=== PATIENT | male | born 1955 | race Caucasian/White ===

== ENCOUNTER 2019-04-02 17:34 | Emergency (ER) | payer MEDICARE ==
[2019-04-02] MEDS ORDERED: Ondansetron 4 MG Tab.DIS PO ONE (17:35)
--- NOTE | 2019-04-02 17:46 | EDM.PDOC ---
ED HPI GENERAL MEDICAL PROBLEM - General Chief Complaint: General Stated Complaint: DOESN'T FEEL RIGHT, DIABETIC Time Seen by Provider: 04/02/19 17:39 Source of Information: Reports: Patient, Old Records, RN, RN Notes Reviewed History Limitations: Reports: No Limitations - History of Present Illness INITIAL COMMENTS - FREE TEXT/NARRATIVE: Pt presents to ER from home by POV with c/o onset of "not feeling right" at 1100HRS this morning. Shortly after he felt poorly, he checked his blood sugar and it was 51 so he ate something sweet, and drank orange juice. His sugar came up, then he ate 2 sausages. After eating the sausages he got hot, then broke out in a cold sweat and describes being diaphoretic. Pt reports nausea with emesis x1. He states that he has a headache, has some mild shortness of breath, and feels unsteady on his feet. He denies chest pain, fever, cough, abdominal pain, diarrhea, urinary symptoms, edema, syncope, or near-syncope. He is concerned because he is diabetic, and has Hx of cardiac stents, so he thought he should come to the ER to be checked out. The pt's history is quit lengthy due to wandering subjects, pt seems to get side tracked in conversation very easy. Onset: Today Duration: Constant Location: Reports: Abdomen, Generalized Quality: Reports: Other (Denies pain) Severity: Moderate Improves with: Reports: None Worsens with: Reports: None Associated Symptoms: Reports: No Other Symptoms - Related Data Allergies Allergy/AdvReac Type Severity Reaction Status Date / Time No Known Allergies Allergy Verified 04/02/19 17:50 Home Meds: Home Meds Acetaminophen 500 mg PO QID PRN 04/02/19 [History] Aspirin [Halfprin] 81 mg PO DAILY 04/02/19 [History] Atenolol 100 mg PO DAILY 04/02/19 [History] Clopidogrel [Plavix] 75 mg PO DAILY 04/02/19 [History] Cyclobenzaprine [Flexeril] 5 mg PO TID PRN 04/02/19 [History] Ferrous Sulfate 325 mg PO DAILY 04/02/19 [History] Insulin Glarg,Human.Rec.Analog [Lantus] 35 unit SQ BID 04/02/19 [History] Insulin Lispro [Humalog] 25 unit SQ TIDMEALS 04/02/19 [History] Isosorbide Mononitrate [Imdur] 30 mg PO DAILY 04/02/19 [History] Montelukast [Singulair] 10 mg PO BEDTIME 04/02/19 [History] Niacin 2,000 mg PO BEDTIME 04/02/19 [History] Nitroglycerin [Nitrostat] 0.4 mg SL TID 04/02/19 [History] Pantoprazole Sodium [Protonix] 20 mg PO DAILY 04/02/19 [History] Simvastatin 20 mg PO BEDTIME 04/02/19 [History] Zolpidem Tartrate [Ambien] 5 mg PO BEDTIME PRN 04/02/19 [History] diphenhydrAMINE [Benadryl] 25 mg PO QID PRN 04/02/19 [History] Past Medical History Cardiovascular History: Reports: CAD, High Cholesterol, Hypertension, Stents Gastrointestinal History: Reports: GERD Genitourinary History: Reports: Prostate Disorder Endocrine/Metabolic History: Reports: Diabetes, Type II Hematologic History: Reports: Anemia, Iron Deficiency Social & Family History - Family History Family Medical History: Noncontributory - Living Situation & Occupation Living situation: Reports: Single, Alone ED ROS GENERAL - Review of Systems Review Of Systems: ROS reveals no pertinent complaints other than HPI. ED EXAM, GENERAL - Physical Exam Exam: See Below Exam Limited By: No Limitations General Appearance: Alert, WD/WN, No Apparent Distress, Anxious Eye Exam: Bilateral Eye: Normal Inspection Ears: Normal External Exam, Hearing Grossly Normal Nose: Normal Inspection, Normal Mucosa, No Blood Throat/Mouth: Normal Inspection, Normal Lips, Normal Oropharynx, Normal Voice, No Airway Compromise Head: Atraumatic, Normocephalic Neck: Normal Inspection, Supple, Non-Tender, Full Range of Motion Respiratory/Chest: No Respiratory Distress, Lungs Clear, Normal Breath Sounds, No Accessory Muscle Use, Chest Non-Tender Cardiovascular: Regular Rate, Rhythm GI/Abdominal: Normal Bowel Sounds, Soft, Non-Tender, No Distention, No Abnormal Bruit, No Mass. No: Guarding, Rigid, Rebound (Male) Exam: Deferred Rectal (Males) Exam: Deferred Back Exam: Normal Inspection, Full Range of Motion. No: CVA Tenderness (L), CVA Tenderness (R) Extremities: Normal Inspection, Normal Range of Motion, Non-Tender, No Pedal Edema, Normal Capillary Refill Neurological: Alert, Oriented, CN II-XII Intact, Normal Cognition, Normal Gait, No Motor/Sensory Deficits Psychiatric: Anxious Skin Exam: Warm, Dry, Intact, Normal Color, No Rash EKG INTERPRETATION EKG Date: 04/02/19 Time: 17:56 Rhythm: Other (SR) Rate (Beats/Min): 87 [place]: Normal P-Wave: Present QRS: Normal ST-T: Normal QT: Normal Comparison: NA - No Prior EKG EKG Interpretation Comments: No acute ischemic findings. Course - Vital Signs Last Recorded V/S: Last Vital Signs Temp 37.2 C 04/02/19 17:39 Pulse 90 04/02/19 17:39 Resp 23 H 04/02/19 17:39 BP 126/61 04/02/19 17:39 Pulse Ox 97 04/02/19 17:39 - Orders/Labs/Meds Orders: Active Orders 24 hr Category Date Time Status Blood Glucose Check, Bedside [] ONETIME Care 04/02/19 17:53 Active EKG 12 Lead [EKG Documentation Completion] [] STAT Care 04/02/19 17:52 Active Peripheral IV Care [RC] . DIRECTED Care 04/02/19 17:53 Active Chest 1V Frontal [CR] Stat Exams 04/02/19 17:52 Ordered UA W/MICROSCOPIC [URIN] Stat Lab 04/02/19 18:24 Results Sodium Chloride 0.9% [Saline Flush] Med 04/02/19 17:53 Active 10 ml FLUSH ASDIRECTED PRN Peripheral IV Insertion Adult [OM.PC] Stat Oth 04/02/19 17:52 Ordered Medication Orders Sodium Chloride (Saline Flush) 10 ml FLUSH ASDIRECTED PRN PRN Reason: Keep Vein Open Last Admin: 04/02/19 18:05 Dose: 10 ml Labs: Laboratory Tests 04/02/19 04/02/19 04/02/19 Range/Units 18:03 18:03 18:24 WBC 6.3 (5.0-10.0) 10^3/uL RBC 3.68 L (4.6-6.2) 10^6/uL Hgb 11.8 L (14.0-18.0) g/dL Hct 33.7 L (40.0-54.0) % MCV 91.6 (80-100) fL MCH 32.1 (27.0-34.0) pg MCHC 35.0 (33.0-35.0) g/dL Plt Count 108 L (150-450) 10^3/uL Neut % (Auto) 96.7 H (42.2-75.2) % Lymph % (Auto) 1.9 L (20.5-50.1) % [place] % (Auto) 0.9 L (2-8) % Eos % (Auto) 0.3 L (1.0-3.0) % Baso % (Auto) 0.2 (0.0-1.0) % Sodium 132 L (135-145) mmol/L Potassium 3.4 L (3.6-5.0) mmol/L Chloride 98 L (101-111) mmol/L Carbon Dioxide 25.0 (21.0-31.0) mmol/L Anion Gap 12.4 BUN 15 (7-18) mg/dL Creatinine 1.0 (0.6-1.3) mg/dL Est Cr Clr Drug Dosing 73.15 mL/min Estimated GFR (MDRD) > 60 BUN/Creatinine Ratio 15.00 Glucose 227 H (74-105) mg/dL Calcium 7.8 L (8.4-10.2) mg/dl Total Bilirubin 0.9 (0.2-1.0) mg/dL AST 106 H (10-42) IU/L ALT 40 (10-60) IU/L Alkaline Phosphatase 90 (42-121) IU/L Troponin I < 0.02 (0.00-0.02) ng/ml Total Protein 5.3 L (6.7-8.2) g/dl Albumin 3.3 (3.2-5.5) g/dl Globulin 2.0 Albumin/Globulin Ratio 1.65 Amylase 46 (28-100) U/L Lipase 22 (22-51) U/L Urine Color Yellow (YELLOW) Urine Appearance Clear (CLEAR) Urine pH 6.0 (5.0-9.0) Ur Specific [place] 1.015 (1.005-1.030) Urine Protein 30 H (NEGATIVE) Urine Glucose (UA) 100 H (NEGATIVE) Urine Ketones Trace H (NEGATIVE) Urine Occult Blood Negative (NEGATIVE) Urine Nitrite Negative (NEGATIVE) Urine Bilirubin Negative (NEGATIVE) Urine Urobilinogen 1.0 (0.2-1.0) mg/dL Ur Leukocyte Esterase Negative (NEGATIVE) Ketones Negative Meds: Medications Generic Name Dose Route Start Last Admin Trade Name Freq PRN Reason Stop Dose Admin Sodium Chloride 10 ml 04/02/19 17:53 04/02/19 18:05 Saline Flush FLUSH 10 ml ASDIRECTED PRN Administration Keep Vein Open Discontinued Medications Generic Name Dose Route Start Last Admin Trade Name Freq PRN Reason Stop Dose Admin Sodium Chloride 1,000 mls @ 999 mls/hr 04/02/19 17:53 04/02/19 18:07 Normal Saline IV 04/02/19 18:53 999 mls/hr .BOLUS ONE Administration Ondansetron HCl 4 mg 04/02/19 17:53 04/02/19 18:10 Zofran IV 04/02/19 17:54 4 mg ONETIME ONE Administration - Radiology Interpretation Free Text/Narrative:: [facility] Final Radiology Report Call: [phone] assistance Online chat: [email or web address] Name: DIANA WISDOM Age: 63Years M Date: 04/02/2019 SSN: -- : [id number] Study: XR CHEST 1 VIEW FRONTAL Requesting Physician: SARAH KAHN Images: 1 Addl Studies: Provided Clinical History: Contrast: Contrast Medium: Contrast Amount: Contrast Method: CONFIDENTIALITY STATEMENT This report is intended only for use by the referring physician, and only in accordance with law. If you received this in error, call [phone]. Page 1 of 1 EXAM: XR Chest, 1 View EXAM DATE/TIME: 04/02/2019 6:18 PM CLINICAL HISTORY: 63 years old, male; Signs and symptoms; Other: Chest pain TECHNIQUE: Imaging protocol: XR of the chest, 1 view. COMPARISON: No relevant prior studies available. FINDINGS: Lungs: Calcified granuloma left lung apex. No consolidation. Pleural space: Unremarkable. No pleural effusion. No pneumothorax. Heart/Mediastinum: Unremarkable. No cardiomegaly. Bones/joints: Unremarkable. IMPRESSION: No acute findings. Thank you for allowing us to participate in the care of your patient. Dictated and Authenticated by: Junior Lu MD 04/02/2019 6:31 PM Central Time ([place] & [place]) Departure - Departure Time of Disposition: 18:57 Disposition: Home, Self-Care 01 Condition: Good Clinical Impression: Nausea and vomiting Qualifiers: Vomiting type: unspecified Vomiting Intractability: non-intractable Qualified Code(s): R11.2 - Nausea with vomiting, unspecified - Discharge Information *PRESCRIPTION DRUG MONITORING PROGRAM REVIEWED*: No *COPY OF PRESCRIPTION DRUG MONITORING REPORT IN PATIENT NADEEN: No Instructions: Nausea and Vomiting, Adult, [id number] Forms: ED Department Discharge Additional Instructions: Rx: Zofran 4mg Clear liquids and bland diet until your stomach feels better and the nausea has completely resolved. Follow up in clinic with Dr. Che this week if not completely improved. Return to ER if worse at any time or if any new symptoms develop. - My Orders Last 24 Hours: My Active Orders 04/02/19 17:52 EKG 12 Lead [EKG Documentation Completion] [RC] STAT Chest 1V Frontal [CR] Stat Peripheral IV Insertion Adult [OM.PC] Stat 04/02/19 17:53 Blood Glucose Check, Bedside [RC] ONETIME Peripheral IV Care [RC] . DIRECTED Sodium Chloride 0.9% [Saline Flush] 10 ml FLUSH ASDIRECTED PRN 04/02/19 18:24 UA W/MICROSCOPIC [URIN] Stat - Assessment/Plan Last 24 Hours: My Active Orders 04/02/19 17:52 EKG 12 Lead [EKG Documentation Completion] [RC] STAT Chest 1V Frontal [CR] Stat Peripheral IV Insertion Adult [OM.PC] Stat 04/02/19 17:53 Blood Glucose Check, Bedside [RC] ONETIME Peripheral IV Care [RC] . DIRECTED Sodium Chloride 0.9% [Saline Flush] 10 ml FLUSH ASDIRECTED PRN 04/02/19 18:24 UA W/MICROSCOPIC [URIN] Stat
[2019-04-02] MEDS ORDERED: Sodium Chloride 0.9% 10 ML Syringe FLUSH PRN (17:53)
[2019-04-02] MEDS ORDERED: Sodium Chloride 0.9% 1,000 ML IV ONE (17:53)
[2019-04-02] MEDS ORDERED: Ondansetron 4 MG/2 ML SDV IV ONE (17:53)
[2019-04-02 18:38] LABS: ANION GAP 12.4; CHLORIDE,CL 98 mmol/L (101-111); SODIUM,NA 132 mmol/L (135-145)
[2019-04-02] MEDS ORDERED: Ondansetron 4 MG Tab.DIS ONE (19:18)
== END 2019-04-02 19:30 | disposition home or self-care (01) ==
LOC: DL.ED 17:34
DX: R11.2 Nausea with vomiting, unspecified (principal); I25.10 Atherosclerotic heart disease of native coronary artery without angina pectoris; E78.00 Pure hypercholesterolemia, unspecified; I10 Essential (primary) hypertension; E11.9 Type 2 diabetes mellitus without complications; K21.9 Gastro-esophageal reflux disease without esophagitis; D50.9 Iron deficiency anemia, unspecified; Z79.82 Long term (current) use of aspirin; Z95.5 Presence of coronary angioplasty implant and graft; Z79.899 Other long term (current) drug therapy; Z79.01 Long term (current) use of anticoagulants; Z79.4 Long term (current) use of insulin
CPT/HCPCS: 36415; 71045; 80053; 81001; 82009; 82150; 82962; 83690; 84484; 85025; 93005; 96365; 96375; 99284; J2405; J7030; A9270-GY

== ENCOUNTER 2020-01-09 16:16 | Emergency (ER) | payer MEDICARE, OTHER, SELFPAY ==
[2020-01-09] MEDS ORDERED: 50% Dextrose in Water 50 ML Syringe IVPUSH ONE (16:20)
--- NOTE | 2020-01-09 17:04 | EDM.PDOC ---
ED HPI GENERAL MEDICAL PROBLEM - General Chief Complaint: Diabetic Complaint Stated Complaint: AMB Time Seen by Provider: 01/09/20 16:30 Source of Information: Reports: Patient History Limitations: Reports: No Limitations - History of Present Illness INITIAL COMMENTS - FREE TEXT/NARRATIVE: This 64 yo male patient was brought to the ED by [facility] after intercepting with a private vehicle. The patient reports he has had numerous episodes of hypoglycemia. The patient reports normally when his blood pressure goes low, he has some sugar and feels better, but normally he does get the chills. The patient reports chills upon arrival in the ED. 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: Other (see below) (D10 by EMS) - Related Data Allergies Allergy/AdvReac Type Severity Reaction Status Date / Time No Known Allergies Allergy Verified 01/09/20 16:36 Home Meds: Home Meds Acetaminophen 500 mg PO QID PRN 04/02/19 [History] Aspirin [Halfprin] 81 mg PO DAILY 04/02/19 [History] Clopidogrel [Plavix] 75 mg PO DAILY 04/02/19 [History] Cyclobenzaprine [Flexeril] 5 mg PO TID PRN 04/02/19 [History] Ferrous Sulfate 325 mg PO DAILY 04/02/19 [History] Insulin Glarg,Human.Rec.Analog [Lantus] 35 unit SQ BID 04/02/19 [History] Insulin Lispro [Humalog] 25 unit SQ TIDMEALS 04/02/19 [History] Isosorbide Mononitrate [Imdur] 30 mg PO DAILY 04/02/19 [History] Montelukast [Singulair] 10 mg PO BEDTIME 04/02/19 [History] Niacin 2,000 mg PO BEDTIME 04/02/19 [History] Nitroglycerin [Nitrostat] 0.4 mg SL TID 04/02/19 [History] Pantoprazole Sodium [Protonix] 20 mg PO DAILY 04/02/19 [History] Simvastatin 20 mg PO BEDTIME 04/02/19 [History] Zolpidem Tartrate [Ambien] 5 mg PO BEDTIME PRN 04/02/19 [History] atenoloL [Atenolol] 100 mg PO DAILY 04/02/19 [History] diphenhydrAMINE [Benadryl] 25 mg PO QID PRN 04/02/19 [History] Past Medical History HEENT History: Reports: Impaired Vision Cardiovascular History: Reports: CAD, High Cholesterol, Hypertension, Stents Respiratory History: Reports: COPD Gastrointestinal History: Reports: GERD Genitourinary History: Reports: Prostate Disorder Neurological History: Reports: None Psychiatric History: Reports: None Endocrine/Metabolic History: Reports: Diabetes, Type II Hematologic History: Reports: Anemia, Iron Deficiency Oncologic (Cancer) History: Reports: None Dermatologic History: Reports: None - Infectious Disease History Infectious Disease History: Reports: C-Difficile - Past Surgical History Head Surgeries/Procedures: Reports: None Social & Family History - Family History Family Medical History: Noncontributory - Tobacco Use Smoking Status *Q: Never Smoker - Caffeine Use Caffeine Use: Reports: Soda - Recreational Drug Use Recreational Drug Use: No - Living Situation & Occupation Living situation: Reports: Single, Alone ED ROS GENERAL - Review of Systems Review Of Systems: Comprehensive ROS is negative, except as noted in HPI. ED EXAM GENERAL NO PERIP PULSE - Physical Exam Exam: See Below Exam Limited By: No Limitations General Appearance: Alert, WD/WN, Moderate Distress Eye Exam: Bilateral Eye: EOMI, Normal Inspection, PERRL Ears: Normal External Exam, Normal Canal, Hearing Grossly Normal, Normal TMs Nose: Normal Inspection, Normal Mucosa, No Blood Throat/Mouth: Normal Inspection, Normal Lips, Normal Teeth, Normal Gums, Normal Oropharynx, Normal Voice, No Airway Compromise Head: Atraumatic, Normocephalic Neck: Normal Inspection, Supple, Non-Tender, Full Range of Motion Respiratory/Chest: No Respiratory Distress, Lungs Clear, Normal Breath Sounds, No Accessory Muscle Use, Chest Non-Tender Cardiovascular: Normal Peripheral Pulses, Regular Rate, Rhythm, No Edema, No Gallop, No JVD, No Murmur, No Rub GI/Abdominal: Normal Bowel Sounds, Soft, Non-Tender, No Organomegaly, No Distention, No Abnormal Bruit, No Mass (Male) Exam: Deferred Rectal (Males) Exam: Deferred Back Exam: Normal Inspection, Full Range of Motion, NT Extremities: Normal Inspection, Normal Range of Motion, Non-Tender, Normal Capillary Refill, No Pedal Edema Neurological: Alert, Oriented, CN II-XII Intact, Normal Cognition, Normal Gait, Normal Reflexes, No Motor/Sensory Deficits Psychiatric: Normal Affect, Normal Mood Skin Exam: Warm, Dry, Intact, Normal Color, No Rash Lymphatic: No Adenopathy Course - Vital Signs Last Recorded V/S: Last Vital Signs Temp 36.1 C 01/09/20 16:23 Pulse 75 01/09/20 16:23 Resp 22 H 01/09/20 16:23 BP Pulse Ox 100 01/09/20 16:23 - Orders/Labs/Meds Labs: Laboratory Tests 01/09/20 Range/Units 16:22 POC Glucose 189 H (70-105) mg/dl Meds: Medications Discontinued Medications Generic Name Dose Route Start Last Admin Trade Name Earnest PRN Reason Stop Dose Admin Dextrose/Water 50 ml 01/09/20 16:20 Dextrose 50% In Water IVPUSH 01/09/20 16:21 ONETIME ONE Departure - Departure Time of Disposition: 17:22 Disposition: Home, Self-Care 01 Condition: Fair Clinical Impression: Hypoglycemia - Discharge Information *PRESCRIPTION DRUG MONITORING PROGRAM REVIEWED*: Not Applicable *COPY OF PRESCRIPTION DRUG MONITORING REPORT IN PATIENT NADEEN: Not Applicable Instructions: Hypoglycemia Forms: ED Department Discharge Care Plan Goals: The patient was advised of the examination and lab results during the visit. The patient was encouraged to continue to monitor his blood sugar on a regular basis. The patient reported he was feeling better by the time he arrived in the ED. The patient reports he will discuss his current episode with his primary care provider. If the patient has any additional symptoms or concerns, the patient should either return to the emergency department or visit his primary care facility. Sepsis Event Note - Evaluation Sepsis Screening Result: No Definite Risk - Focused Exam Vital Signs: Vital Signs Temp Pulse Resp Pulse Ox 01/09/20 16:23 36.1 C 75 22 H 100 Date Exam was Performed: 01/09/20 Time Exam was Performed: :22
== END 2020-01-09 17:30 | disposition home or self-care (01) ==
LOC: DL.ED 16:16
DX: E11.649 Type 2 diabetes mellitus with hypoglycemia without coma (principal); I25.10 Atherosclerotic heart disease of native coronary artery without angina pectoris; E78.00 Pure hypercholesterolemia, unspecified; I10 Essential (primary) hypertension; J44.9 Chronic obstructive pulmonary disease, unspecified; K21.9 Gastro-esophageal reflux disease without esophagitis; D50.9 Iron deficiency anemia, unspecified; Z95.5 Presence of coronary angioplasty implant and graft; Z79.899 Other long term (current) drug therapy; Z79.82 Long term (current) use of aspirin; Z79.02 Long term (current) use of antithrombotics/antiplatelets; Z79.4 Long term (current) use of insulin
CPT/HCPCS: 82962; 99284; 99285-25

== ENCOUNTER 2020-03-20 17:18 | Emergency (ER) | payer MEDICARE ==
--- NOTE | 2020-03-20 17:18 | EDM.PDOC ---
ED HPI GENERAL MEDICAL PROBLEM - General Chief Complaint: Diabetic Complaint Stated Complaint: UNKNOWN Time Seen by Provider: 03/20/20 17:05 Source of Information: Reports: Patient, EMS History Limitations: Reports: No Limitations - History of Present Illness INITIAL COMMENTS - FREE TEXT/NARRATIVE: This 64 yo male patient was brought to the ED by his son after being found in the [employer] parking lot unresponsive. EMS reported they responded to the patient' s vehicle due to unresponsiveness. Upon arrival, the patient's blood sugar level was 30. The patient was given IV D10 which increased his blood sugar level as well as level of consciousness. The patient refused transport to the ED by ambulance. The patient was given a ride to the ED by his son. Upon arrival in the ED, the patient reports he had a "diabetic episode". The patient' s main concern is that he has the inability to use his right hand and wrist. The patient is able to move the arm to the elbow, but has difficulties with any manipulation of the wrist or hand. The patient reports this is new for him. EMS reports they found the patient in the car leaning on his right arm. Apparently, the family had not been able to locate the patient for 3-4 hours prior to the patient being found in the [employer] parking lot. Onset: Today, Unknown/Unsure Location: Reports: Upper Extremity, Right, Generalized Quality: Reports: Other Severity: Moderate Improves with: Reports: None Worsens with: Reports: None Context: Reports: Other Associated Symptoms: Reports: Other - Related Data Allergies Allergy/AdvReac Type Severity Reaction Status Date / Time No Known Allergies Allergy Verified 01/09/20 16:36 Home Meds: Home Meds Acetaminophen 500 mg PO QID PRN 04/02/19 [History] Aspirin [Halfprin] 81 mg PO DAILY 04/02/19 [History] Clopidogrel [Plavix] 75 mg PO DAILY 04/02/19 [History] Cyclobenzaprine [Flexeril] 5 mg PO TID PRN 04/02/19 [History] Ferrous Sulfate 325 mg PO DAILY 04/02/19 [History] Insulin Glarg,Human.Rec.Analog [Lantus] 35 unit SQ BID 04/02/19 [History] Insulin Lispro [Humalog] 25 unit SQ TIDMEALS 04/02/19 [History] Isosorbide Mononitrate [Imdur] 30 mg PO DAILY 04/02/19 [History] Montelukast [Singulair] 10 mg PO BEDTIME 04/02/19 [History] Niacin 2,000 mg PO BEDTIME 04/02/19 [History] Nitroglycerin [Nitrostat] 0.4 mg SL TID 04/02/19 [History] Pantoprazole Sodium [Protonix] 20 mg PO DAILY 04/02/19 [History] Simvastatin 20 mg PO BEDTIME 04/02/19 [History] Zolpidem Tartrate [Ambien] 5 mg PO BEDTIME PRN 04/02/19 [History] atenoloL [Atenolol] 100 mg PO DAILY 04/02/19 [History] diphenhydrAMINE [Benadryl] 25 mg PO QID PRN 04/02/19 [History] Past Medical History HEENT History: Reports: Impaired Vision Cardiovascular History: Reports: CAD, High Cholesterol, Hypertension, Stents Respiratory History: Reports: COPD Gastrointestinal History: Reports: GERD Genitourinary History: Reports: Prostate Disorder Neurological History: Reports: None Psychiatric History: Reports: None Endocrine/Metabolic History: Reports: Diabetes, Type II Hematologic History: Reports: Anemia, Iron Deficiency Oncologic (Cancer) History: Reports: None Dermatologic History: Reports: None - Infectious Disease History Infectious Disease History: Reports: C-Difficile - Past Surgical History Head Surgeries/Procedures: Reports: None Social & Family History - Family History Family Medical History: Noncontributory - Caffeine Use Caffeine Use: Reports: Soda - Living Situation & Occupation Living situation: Reports: Single, Alone ED ROS GENERAL - Review of Systems Review Of Systems: Comprehensive ROS is negative, except as noted in HPI. ED EXAM GENERAL NO PERIP PULSE - Physical Exam Exam: See Below Exam Limited By: No Limitations General Appearance: Alert, WD/WN, Moderate Distress Eye Exam: Bilateral Eye: EOMI, Normal Inspection, PERRL Ears: Normal External Exam, Normal Canal, Hearing Grossly Normal, Normal TMs Nose: Normal Inspection, Normal Mucosa, No Blood Throat/Mouth: Normal Inspection, Normal Lips, Normal Teeth, Normal Gums, Normal Oropharynx, Normal Voice, No Airway Compromise Head: Atraumatic, Normocephalic Neck: Normal Inspection, Supple, Non-Tender, Full Range of Motion Respiratory/Chest: No Respiratory Distress, Lungs Clear, Normal Breath Sounds, No Accessory Muscle Use, Chest Non-Tender Cardiovascular: Normal Peripheral Pulses, Regular Rate, Rhythm, No Edema, No Gallop, No JVD, No Murmur, No Rub GI/Abdominal: Normal Bowel Sounds, Soft, Non-Tender, No Organomegaly, No Distention, No Abnormal Bruit, No Mass (Male) Exam: Deferred Rectal (Males) Exam: Deferred Back Exam: Normal Inspection, Full Range of Motion, NT Extremities: Normal Inspection, Non-Tender, No Pedal Edema, Normal Capillary Refill, Limited Range of Motion (to the patient's right arm (paralysis of the right wrist and right hand)) Neurological: Alert, Oriented, CN II-XII Intact, Normal Cognition, Normal Gait, Normal Reflexes, No Motor/Sensory Deficits Psychiatric: Normal Affect, Normal Mood Skin Exam: Warm, Dry, Intact, Normal Color, No Rash Lymphatic: No Adenopathy Course - Vital Signs Last Recorded V/S: Last Vital Signs Temp 35.8 C L 03/20/20 16:43 Pulse 79 03/20/20 16:43 Resp 26 H 03/20/20 16:43 BP 201/82 H 03/20/20 16:43 Pulse Ox 99 03/20/20 16:43 - Orders/Labs/Meds Orders: Active Orders 24 hr Category Date Time Status EKG Documentation Completion [RC] STAT Care 03/20/20 17:03 Active Head wo Cont [CT] Urgent Exams 03/20/20 17:11 Ordered Labs: Laboratory Tests 03/20/20 03/20/20 03/20/20 Range/Units 16:48 17:14 17:14 WBC 9.0 (5.0-10.0) 10^3/uL RBC 3.79 L (4.6-6.2) 10^6/uL Hgb 11.4 L (14.0-18.0) g/dL Hct 35.1 L (40.0-54.0) % MCV 92.6 (80-100) fL MCH 30.1 (27.0-34.0) pg MCHC 32.5 L (33.0-35.0) g/dL Plt Count 173 (150-450) 10^3/uL Neut % (Auto) 88.6 H (42.2-75.2) % Lymph % (Auto) 5.7 L (20.5-50.1) % [place] % (Auto) 5.0 (2-8) % Eos % (Auto) 0.6 L (1.0-3.0) % Baso % (Auto) 0.1 (0.0-1.0) % Sodium 139 (136-145) mmol/L Potassium 4.1 (3.5-5.1) mmol/L Chloride 102 (98-107) mmol/L Carbon Dioxide 29 (21-32) mmol/L Anion Gap 12.1 (7-13) mEq/L BUN 15 (7-18) mg/dL Creatinine 1.01 (0.70-1.30) mg/dL Est Cr Clr Drug Dosing 73.89 mL/min Estimated GFR (MDRD) > 60 BUN/Creatinine Ratio 14.9 (No establ ref range) Glucose 145 H (74-99) mg/dL POC Glucose 173 H (70-105) mg/dl Calcium 8.6 (8.5-10.1) mg/dL Total Bilirubin 0.4 (0.2-1.0) mg/dL AST 23 (15-37) U/L ALT 23 (16-63) U/L Alkaline Phosphatase 187 H (46-116) U/L Troponin I < 0.017 (0.000-0.056) ng/mL Total Protein 6.6 (6.4-8.2) g/dL Albumin 3.4 (3.4-5.0) g/dL Globulin 3.2 Albumin/Globulin Ratio 1.1 - Re-Assessments/Exams Free Text/Narrative Re-Assessment/Exam: 03/20/20 18:37 Follow-up evaluation of the patient demonstrated reduced redness of the right distal arm and increased movement of the wrist and and fingers. Departure - Departure Time of Disposition: 18:34 Disposition: Home, Self-Care 01 Condition: Fair Clinical Impression: Neuropathy of right upper extremity, Hypoglycemia - Discharge Information Instructions: Preventing Hypoglycemia, Peripheral Neuropathy, Hypoglycemia, [id number] Forms: ED Department Discharge Care Plan Goals: The patient was advised of the examination, lab, EKG and CT results during the visit. The patient was placed in a sling for support. The patient was encouraged to continue to monitor his right arm for any worsening of symptoms. If the patient has any additional symptoms or concerns, the patient should either return to the emergency department or visit his primary care facility. Sepsis Event Note - Evaluation Sepsis Screening Result: No Definite Risk - Focused Exam Vital Signs: Vital Signs Temp Pulse Resp BP Pulse Ox 03/20/20 16:43 35.8 C L 79 26 H 201/82 H 99 Date Exam was Performed: 03/20/20 Time Exam was Performed: 18:37 - My Orders Last 24 Hours: My Active Orders 03/20/20 17:03 EKG Documentation Completion [RC] STAT 03/20/20 17:11 Head wo Cont [CT] Urgent - Assessment/Plan Last 24 Hours: My Active Orders 03/20/20 17:03 EKG Documentation Completion [RC] STAT 03/20/20 17:11 Head wo Cont [CT] Urgent
[2020-03-20 17:43] LABS: ANION GAP 12.1 mEq/L (7-13); CHLORIDE,CL 102 mmol/L (98-107); SODIUM,NA 139 mmol/L (136-145)
== END 2020-03-20 18:55 | disposition home or self-care (01) ==
LOC: DL.ED 17:18
DX: G62.9 Polyneuropathy, unspecified (principal); E11.42 Type 2 diabetes mellitus with diabetic polyneuropathy; I25.10 Atherosclerotic heart disease of native coronary artery without angina pectoris; E78.00 Pure hypercholesterolemia, unspecified; I10 Essential (primary) hypertension; J44.9 Chronic obstructive pulmonary disease, unspecified; E11.649 Type 2 diabetes mellitus with hypoglycemia without coma; K21.9 Gastro-esophageal reflux disease without esophagitis; Z95.5 Presence of coronary angioplasty implant and graft; Z79.82 Long term (current) use of aspirin; Z79.4 Long term (current) use of insulin; Z79.02 Long term (current) use of antithrombotics/antiplatelets
CPT/HCPCS: 36415; 70450; 80053; 82962; 84484; 85025; 93005; 99285-25

== ENCOUNTER 2023-12-06 11:43 | Inpatient (IN) | payer MEDICARE, BC ==
[2023-12-06] MEDS ORDERED: Acetaminophen/oxyCODONE 325-5 MG Tab PO PRN (12:39)
[2023-12-06] MEDS ORDERED: HYDROmorphone 0.5 MG/0.5 ML Syringe IVPUSH PRN (12:39)
[2023-12-06] MEDS ORDERED: Magnesium Hydroxide 400 MG/5 ML Susp 30 ML Cup PO PRN (12:39)
[2023-12-06] MEDS ORDERED: Acetaminophen 325 MG Tab PO PRN (12:39)
[2023-12-06] MEDS ORDERED: Albuterol/Ipratropium 3.0-0.5 MG/3 ML Neb Soln NEB PRN (12:39)
[2023-12-06] MEDS ORDERED: Polyethylene Glycol 3350 Powder 17 GM Packet PO PRN (12:39)
[2023-12-06] MEDS ORDERED: Sennosides/Docusate Sodium 50-8.6 MG Tab PO PRN (12:39)
[2023-12-06] MEDS ORDERED: Ondansetron 4 MG/2 ML SDV IVPUSH PRN (12:39)
[2023-12-06] MEDS ORDERED: Sodium Chloride 0.9% 10 ML Syringe FLUSH PRN (12:39)
[2023-12-06] MEDS ORDERED: Piperacillin/Tazobactam 4.5 GM in Sodium Chloride 0.9% 100 ML IV ONE (13:05)
[2023-12-06 13:40] LABS: BASOPHILS PERCENT AUTO 0.1 % (0.0-1.0); EOSINOPHILS PERCENT AUTO 1.2 % (1.0-3.0); HEMATOCRIT 31.5 % (40.0-54.0); HEMOGLOBIN 10.6 g/dL (14.0-18.0); LYMPHOCYTES PERCENT AUTO 8.9 % (20.5-50.1); MEAN CORPUSCULAR HEMOGLOBIN 31.4 pg (27.0-34.0); MEAN CORPUSCULAR HGB CONC 33.7 g/dL (33.0-35.0); MEAN CORPUSCULAR VOLUME 93.2 fL (80-100); MONOCYTES PERCENT AUTO 5.3 % (2-8); NEUTROPHILS PERCENT AUTO 84.5 % (42.2-75.2); PLATELET COUNT,PLT 133 10^3/uL (150-450); RED BLOOD CELL COUNT 3.38 10^6/uL (4.6-6.2); WHITE BLOOD CELL COUNT,WBC 9.3 10^3/uL (5.0-10.0)
[2023-12-06] MEDS ORDERED: Glucagon,Human Recombinant 1 MG Vial IM PRN ×2 (13:50→15:39)
[2023-12-06] MEDS ORDERED: 50% Dextrose in Water 50 ML Syringe IVPUSH PRN ×2 (13:50→15:39)
[2023-12-06] MEDS ORDERED: Clindamycin in 0.9 % Sod Chlor 900 MG in Premix Bag 1 BAG IV SCH ×2 (14:00)
[2023-12-06 14:04] LABS: ALBUMIN 2.6 g/dL (3.4-5.0); ANION GAP 11.7 mEq/L (7-13); BILIRUBIN TOTAL 0.4 mg/dL (0.2-1.0); BUN/CREATININE RATIO 16.1 (No establ ref range); C-REACTIVE PROTEIN 11.49 ng/dL (<=0.50); CREATININE 1.37 mg/dL (0.70-1.30); EST CRCL DRUG DOSING (CG) 51.61 mL/min; MAGNESIUM 2.2 mg/dL (1.8-2.4); POTASSIUM,K 4.7 mmol/L (3.5-5.1)
[2023-12-06 14:05] LABS: A/G RATIO 0.76
[2023-12-06] MEDS ORDERED: Iopamidol 612 MG/ML 100 ML Bottle IVPUSH ONE (14:10)
[2023-12-06] MEDS ORDERED: Acetaminophen 500 MG Tab PO PRN (15:39)
[2023-12-06] MEDS: Sodium Chloride 0.9% 1,000 ML IV SCH (16:18)
[2023-12-06] MEDS ORDERED: Insulin Lispro 100 Units/ML 3 ML Vial SUBCUT SCH (17:00)
[2023-12-06] MEDS: Insulin Lispro 100 Units/ML 3 ML Vial SUBCUT SCH (17:51)
[2023-12-06] MEDS: Ferrous Sulfate 325 MG Tab PO SCH (17:54)
[2023-12-06] MEDS: Piperacillin/Tazobactam 4.5 GM in Sodium Chloride 0.9% 100 ML IV SCH (17:55)
[2023-12-06] MEDS ORDERED: Insulin Glarg,Human.Rec.Analog 100 Unit/ML 10 ML Vial SUBCUT SCH (21:00)
[2023-12-06] MEDS: Montelukast 10 MG Tab PO SCH (21:26)
[2023-12-06] MEDS: Simvastatin 10 MG Tab PO SCH (21:26)
[2023-12-06] MEDS: Niacin 500 MG Tab.ER PO SCH (21:26)
[2023-12-06] MEDS: Saccharomyces Boulardii (Probiotic) 250 MG Cap PO SCH (21:26)
[2023-12-06] MEDS: Sodium Chloride 0.9% 10 ML Syringe FLUSH SCH (21:27)
[2023-12-07] MEDS: Piperacillin/Tazobactam 4.5 GM in Sodium Chloride 0.9% 100 ML IV SCH ×4 (00:01→18:07)
[2023-12-07] MEDS: SOD CHLOR 0.9% IV SCH ×3 (06:11→21:57)
[2023-12-07] MEDS: CLINDAMYCIN IV SCH ×3 (06:11→21:57)
[2023-12-07 06:30] LABS: BASOPHILS PERCENT AUTO 0.1 % (0.0-1.0); EOSINOPHILS PERCENT AUTO 1.3 % (1.0-3.0); HEMATOCRIT 30.7 % (40.0-54.0); HEMOGLOBIN 10.4 g/dL (14.0-18.0); LYMPHOCYTES PERCENT AUTO 13.4 % (20.5-50.1); MEAN CORPUSCULAR HEMOGLOBIN 31.7 pg (27.0-34.0); MEAN CORPUSCULAR HGB CONC 33.9 g/dL (33.0-35.0); MEAN CORPUSCULAR VOLUME 93.6 fL (80-100); NEUTROPHILS PERCENT AUTO 80.2 % (42.2-75.2); PLATELET COUNT,PLT 120 10^3/uL (150-450); RED BLOOD CELL COUNT 3.28 10^6/uL (4.6-6.2); WHITE BLOOD CELL COUNT,WBC 7.8 10^3/uL (5.0-10.0)
[2023-12-07 06:58] LABS: A/G RATIO 0.67; ALBUMIN 2.2 g/dL (3.4-5.0); ANION GAP 11.9 mEq/L (7-13); BILIRUBIN TOTAL 0.4 mg/dL (0.2-1.0); BUN/CREATININE RATIO 12.1 (No establ ref range); C-REACTIVE PROTEIN 6.91 ng/dL (<=0.50); CALCIUM 7.7 mg/dL (8.5-10.1); CREATININE 1.07 mg/dL (0.70-1.30); EST CRCL DRUG DOSING (CG) 66.07 mL/min; MAGNESIUM 2.1 mg/dL (1.8-2.4); POTASSIUM,K 4.9 mmol/L (3.5-5.1); PROTEIN TOTAL,TP 5.5 g/dL (6.4-8.2)
[2023-12-07] MEDS ORDERED: 50% Dextrose in Water 50 ML Syringe IVPUSH PRN (07:12)
[2023-12-07] MEDS ORDERED: Glucagon,Human Recombinant 1 MG Vial IM PRN (07:12)
[2023-12-07] MEDS: Ferrous Sulfate 325 MG Tab PO SCH ×2 (07:53→18:06)
[2023-12-07] MEDS: Insulin Lispro 100 Units/ML 3 ML Vial SUBCUT SCH ×3 (08:02→17:59)
[2023-12-07] MEDS: Insulin Glarg,Human.Rec.Analog 100 Unit/ML 10 ML Vial SUBCUT SCH ×2 (08:17→20:36)
[2023-12-07] MEDS: Isosorbide Mononitrate 60 MG Tab.ER PO SCH (08:19)
[2023-12-07] MEDS: Saccharomyces Boulardii (Probiotic) 250 MG Cap PO SCH ×2 (08:19→20:35)
[2023-12-07] MEDS: Aspirin 81 MG Tab.EC PO SCH (08:19)
[2023-12-07] MEDS: Atenolol 50 MG Tab PO SCH (08:19)
[2023-12-07] MEDS: Pantoprazole 40 MG Tab.CR PO SCH (08:19)
[2023-12-07] MEDS: Clopidogrel 75 MG Tab PO SCH (08:19)
[2023-12-07] MEDS: Sodium Chloride 0.9% 10 ML Syringe FLUSH SCH ×2 (08:21→20:36)
[2023-12-07] MEDS: Sodium Chloride 0.9% 1,000 ML IV SCH (12:27)
[2023-12-07] MEDS: Niacin 500 MG Tab.ER PO SCH (20:35)
[2023-12-07] MEDS: Montelukast 10 MG Tab PO SCH (20:35)
[2023-12-07] MEDS: Simvastatin 10 MG Tab PO SCH (20:35)
[2023-12-07] MEDS: Zolpidem 5 MG Tab PO PRN ×2 (22:08)
[2023-12-08] MEDS: Piperacillin/Tazobactam 4.5 GM in Sodium Chloride 0.9% 100 ML IV SCH ×4 (00:05→17:57)
[2023-12-08] MEDS: SOD CHLOR 0.9% IV SCH ×3 (05:19→21:55)
[2023-12-08] MEDS: CLINDAMYCIN IV SCH ×3 (05:19→21:55)
[2023-12-08 06:26] LABS: BASOPHILS PERCENT AUTO 0.1 % (0.0-1.0); EOSINOPHILS PERCENT AUTO 1.7 % (1.0-3.0); HEMATOCRIT 28.8 % (40.0-54.0); HEMOGLOBIN 9.6 g/dL (14.0-18.0); LYMPHOCYTES PERCENT AUTO 14.7 % (20.5-50.1); MEAN CORPUSCULAR HEMOGLOBIN 31.6 pg (27.0-34.0); MEAN CORPUSCULAR HGB CONC 33.3 g/dL (33.0-35.0); MEAN CORPUSCULAR VOLUME 94.7 fL (80-100); MONOCYTES PERCENT AUTO 4.8 % (2-8); NEUTROPHILS PERCENT AUTO 78.7 % (42.2-75.2); PLATELET COUNT,PLT 133 10^3/uL (150-450); RED BLOOD CELL COUNT 3.04 10^6/uL (4.6-6.2); WHITE BLOOD CELL COUNT,WBC 8.1 10^3/uL (5.0-10.0)
[2023-12-08 06:38] LABS: ANION GAP 15.3 mEq/L (7-13); BILIRUBIN TOTAL 0.4 mg/dL (0.2-1.0); BUN/CREATININE RATIO 15.4 (No establ ref range); C-REACTIVE PROTEIN 4.11 ng/dL (<=0.50); CALCIUM 7.6 mg/dL (8.5-10.1); CREATININE 1.04 mg/dL (0.70-1.30); EST CRCL DRUG DOSING (CG) 67.98 mL/min; MAGNESIUM 1.9 mg/dL (1.8-2.4); POTASSIUM,K 5.3 mmol/L (3.5-5.1); PROTEIN TOTAL,TP 5.3 g/dL (6.4-8.2)
[2023-12-08 06:40] LABS: A/G RATIO 0.61
[2023-12-08] MEDS: Insulin Lispro 100 Units/ML 3 ML Vial SUBCUT SCH ×3 (08:01→17:25)
[2023-12-08] MEDS: Ferrous Sulfate 325 MG Tab PO SCH ×2 (08:01→17:58)
[2023-12-08] MEDS: Clopidogrel 75 MG Tab PO SCH (08:03)
[2023-12-08] MEDS: Saccharomyces Boulardii (Probiotic) 250 MG Cap PO SCH ×2 (08:03→21:54)
[2023-12-08] MEDS: Isosorbide Mononitrate 60 MG Tab.ER PO SCH (08:03)
[2023-12-08] MEDS: Pantoprazole 40 MG Tab.CR PO SCH (08:03)
[2023-12-08] MEDS: Atenolol 50 MG Tab PO SCH (08:04)
[2023-12-08] MEDS: Aspirin 81 MG Tab.EC PO SCH (08:04)
[2023-12-08] MEDS: Insulin Glarg,Human.Rec.Analog 100 Unit/ML 10 ML Vial SUBCUT SCH ×2 (08:06→20:09)
[2023-12-08] MEDS: Sodium Chloride 0.9% 10 ML Syringe FLUSH SCH ×2 (08:08→21:55)
[2023-12-08] MEDS ORDERED: Sodium Polystyrene Sulfonate 15 GM/60 ML Susp 60 ML Bot PO ONE (08:50)
[2023-12-08] MEDS ORDERED: Furosemide 20 MG/2 ML VIAL IVPUSH ONE ×2 (08:58→15:00)
[2023-12-08] MEDS ORDERED: Empagliflozin 25 MG Tab PO STA (09:03)
[2023-12-08] MEDS ORDERED: Metoclopramide 10 MG/2 ML SDV IVPUSH PRN (18:25)
[2023-12-08 20:10] LABS: A/G RATIO 0.71; ALBUMIN 2.4 g/dL (3.4-5.0); ANION GAP 14.7 mEq/L (7-13); BILIRUBIN TOTAL 0.3 mg/dL (0.2-1.0); CALCIUM 8.1 mg/dL (8.5-10.1); CREATININE 1.17 mg/dL (0.70-1.30); EST CRCL DRUG DOSING (CG) 60.43 mL/min; MAGNESIUM 1.8 mg/dL (1.8-2.4); POTASSIUM,K 4.7 mmol/L (3.5-5.1); PROTEIN TOTAL,TP 5.8 g/dL (6.4-8.2)
[2023-12-08 21:38] LABS: A/G RATIO 0.71; ALBUMIN 2.5 g/dL (3.4-5.0); ANION GAP 13.6 mEq/L (7-13); BILIRUBIN TOTAL 0.4 mg/dL (0.2-1.0); CALCIUM 8.1 mg/dL (8.5-10.1); CREATININE 1.17 mg/dL (0.70-1.30); EST CRCL DRUG DOSING (CG) 60.43 mL/min; MAGNESIUM 1.8 mg/dL (1.8-2.4); POTASSIUM,K 4.6 mmol/L (3.5-5.1)
[2023-12-08] MEDS: Montelukast 10 MG Tab PO SCH (21:54)
[2023-12-08] MEDS: Niacin 500 MG Tab.ER PO SCH (21:54)
[2023-12-08] MEDS: Simvastatin 10 MG Tab PO SCH (21:54)
[2023-12-08] MEDS: Zolpidem 5 MG Tab PO PRN (23:17)
[2023-12-09] MEDS: Piperacillin/Tazobactam 4.5 GM in Sodium Chloride 0.9% 100 ML IV SCH ×3 (01:21→17:25)
[2023-12-09] MEDS: SOD CHLOR 0.9% IV SCH ×3 (06:21→22:06)
[2023-12-09] MEDS: CLINDAMYCIN IV SCH ×3 (06:21→22:06)
[2023-12-09 06:38] LABS: BASOPHILS PERCENT AUTO 0.1 % (0.0-1.0); EOSINOPHILS PERCENT AUTO 0.9 % (1.0-3.0); HEMOGLOBIN 11.2 g/dL (14.0-18.0); LYMPHOCYTES PERCENT AUTO 10.2 % (20.5-50.1); MEAN CORPUSCULAR HEMOGLOBIN 31.9 pg (27.0-34.0); MEAN CORPUSCULAR HGB CONC 33.9 g/dL (33.0-35.0); MONOCYTES PERCENT AUTO 5.3 % (2-8); NEUTROPHILS PERCENT AUTO 83.5 % (42.2-75.2); PLATELET COUNT,PLT 165 10^3/uL (150-450); RED BLOOD CELL COUNT 3.51 10^6/uL (4.6-6.2); WHITE BLOOD CELL COUNT,WBC 9.9 10^3/uL (5.0-10.0)
[2023-12-09 07:10] LABS: A/G RATIO 0.74; ALBUMIN 2.5 g/dL (3.4-5.0); ANION GAP 19.3 mEq/L (7-13); BILIRUBIN TOTAL 0.6 mg/dL (0.2-1.0); BUN/CREATININE RATIO 11.5 (No establ ref range); C-REACTIVE PROTEIN 2.99 ng/dL (<=0.50); CALCIUM 8.3 mg/dL (8.5-10.1); CREATININE 1.22 mg/dL (0.70-1.30); EST CRCL DRUG DOSING (CG) 57.95 mL/min; MAGNESIUM 1.8 mg/dL (1.8-2.4); POTASSIUM,K 4.3 mmol/L (3.5-5.1); PROTEIN TOTAL,TP 5.9 g/dL (6.4-8.2)
[2023-12-09] MEDS: Aspirin 81 MG Tab.EC PO SCH (08:07)
[2023-12-09] MEDS: Saccharomyces Boulardii (Probiotic) 250 MG Cap PO SCH ×2 (08:07→20:41)
[2023-12-09] MEDS: Pantoprazole 40 MG Tab.CR PO SCH (08:08)
[2023-12-09] MEDS: Isosorbide Mononitrate 60 MG Tab.ER PO SCH (08:08)
[2023-12-09] MEDS: Ferrous Sulfate 325 MG Tab PO SCH ×2 (08:08→17:25)
[2023-12-09] MEDS: Empagliflozin 25 MG Tab PO SCH (08:08)
[2023-12-09] MEDS: Atenolol 50 MG Tab PO SCH (08:08)
[2023-12-09] MEDS: Insulin Glarg,Human.Rec.Analog 100 Unit/ML 10 ML Vial SUBCUT SCH ×2 (08:09→20:51)
[2023-12-09] MEDS: Insulin Lispro 100 Units/ML 3 ML Vial SUBCUT SCH ×3 (08:11→18:41)
[2023-12-09] MEDS: Clopidogrel 75 MG Tab PO SCH (08:12)
[2023-12-09] MEDS: Sodium Chloride 0.9% 10 ML Syringe FLUSH SCH ×2 (09:31→20:43)
[2023-12-09] MEDS: Bacitracin/Neomycin/Polymyxin B Oint 28.4 GM Tube TOP SCH ×2 (10:18→20:44)
[2023-12-09] MEDS: Simvastatin 10 MG Tab PO SCH (20:41)
[2023-12-09] MEDS: Montelukast 10 MG Tab PO SCH (20:42)
[2023-12-09] MEDS: Niacin 500 MG Tab.ER PO SCH (20:42)
[2023-12-09] MEDS ORDERED: Insulin Glarg,Human.Rec.Analog 100 Unit/ML 10 ML Vial SUBCUT SCH (21:00)
[2023-12-09] MEDS: Zolpidem 5 MG Tab PO PRN (23:12)
[2023-12-10] MEDS: Piperacillin/Tazobactam 4.5 GM in Sodium Chloride 0.9% 100 ML IV SCH ×3 (01:40→18:08)
[2023-12-10] MEDS: SOD CHLOR 0.9% IV SCH ×3 (05:46→22:14)
[2023-12-10] MEDS: CLINDAMYCIN IV SCH ×3 (05:46→22:14)
[2023-12-10 06:20] LABS: BASOPHILS PERCENT AUTO 0.2 % (0.0-1.0); EOSINOPHILS PERCENT AUTO 1.9 % (1.0-3.0); HEMATOCRIT 30.7 % (40.0-54.0); HEMOGLOBIN 9.8 g/dL (14.0-18.0); LYMPHOCYTES PERCENT AUTO 18.2 % (20.5-50.1); MEAN CORPUSCULAR HGB CONC 31.9 g/dL (33.0-35.0); MEAN CORPUSCULAR VOLUME 93.9 fL (80-100); MONOCYTES PERCENT AUTO 6.7 % (2-8); PLATELET COUNT,PLT 145 10^3/uL (150-450); RED BLOOD CELL COUNT 3.27 10^6/uL (4.6-6.2); WHITE BLOOD CELL COUNT,WBC 5.8 10^3/uL (5.0-10.0)
[2023-12-10 06:39] LABS: ALBUMIN 2.2 g/dL (3.4-5.0); ANION GAP 11.7 mEq/L (7-13); BILIRUBIN TOTAL 0.3 mg/dL (0.2-1.0); BUN/CREATININE RATIO 9.5 (No establ ref range); C-REACTIVE PROTEIN 2.04 ng/dL (<=0.50); CALCIUM 7.9 mg/dL (8.5-10.1); CREATININE 1.05 mg/dL (0.70-1.30); EST CRCL DRUG DOSING (CG) 67.33 mL/min; MAGNESIUM 1.9 mg/dL (1.8-2.4); POTASSIUM,K 4.7 mmol/L (3.5-5.1); PROTEIN TOTAL,TP 5.3 g/dL (6.4-8.2)
[2023-12-10 06:42] LABS: A/G RATIO 0.71
[2023-12-10] MEDS: Insulin Glarg,Human.Rec.Analog 100 Unit/ML 10 ML Vial SUBCUT SCH ×2 (10:22→21:12)
[2023-12-10] MEDS: Insulin Lispro 100 Units/ML 3 ML Vial SUBCUT SCH ×4 (10:23→18:07)
[2023-12-10] MEDS: Saccharomyces Boulardii (Probiotic) 250 MG Cap PO SCH ×2 (10:24→20:13)
[2023-12-10] MEDS: Atenolol 50 MG Tab PO SCH (10:24)
[2023-12-10] MEDS: Empagliflozin 25 MG Tab PO SCH (10:25)
[2023-12-10] MEDS: Aspirin 81 MG Tab.EC PO SCH (10:25)
[2023-12-10] MEDS: Ferrous Sulfate 325 MG Tab PO SCH ×2 (10:25→18:09)
[2023-12-10] MEDS: Pantoprazole 40 MG Tab.CR PO SCH (10:25)
[2023-12-10] MEDS: Isosorbide Mononitrate 60 MG Tab.ER PO SCH (10:25)
[2023-12-10] MEDS: Clopidogrel 75 MG Tab PO SCH (10:25)
[2023-12-10] MEDS: Sodium Chloride 0.9% 10 ML Syringe FLUSH SCH ×2 (10:30→20:14)
[2023-12-10] MEDS: Bacitracin/Neomycin/Polymyxin B Oint 28.4 GM Tube TOP SCH ×2 (10:30→20:14)
[2023-12-10] MEDS ORDERED: Sodium Chloride 0.9% 100 ML ONE (17:40)
[2023-12-10] MEDS: Simvastatin 10 MG Tab PO SCH (20:10)
[2023-12-10] MEDS: Niacin 500 MG Tab.ER PO SCH (20:11)
[2023-12-10] MEDS: Montelukast 10 MG Tab PO SCH (20:13)
[2023-12-10] MEDS: Zolpidem 5 MG Tab PO PRN (23:00)
[2023-12-11] MEDS: Piperacillin/Tazobactam 4.5 GM in Sodium Chloride 0.9% 100 ML IV SCH ×3 (01:49→17:19)
[2023-12-11] MEDS: CLINDAMYCIN IV SCH ×3 (05:55→22:24)
[2023-12-11] MEDS: SOD CHLOR 0.9% IV SCH ×3 (05:55→22:24)
[2023-12-11 06:31] LABS: BASOPHILS PERCENT AUTO 0.3 % (0.0-1.0); HEMATOCRIT 29.6 % (40.0-54.0); LYMPHOCYTES PERCENT AUTO 13.8 % (20.5-50.1); MEAN CORPUSCULAR HEMOGLOBIN 31.7 pg (27.0-34.0); MEAN CORPUSCULAR HGB CONC 33.8 g/dL (33.0-35.0); MONOCYTES PERCENT AUTO 5.9 % (2-8); PLATELET COUNT,PLT 160 10^3/uL (150-450); RED BLOOD CELL COUNT 3.15 10^6/uL (4.6-6.2); WHITE BLOOD CELL COUNT,WBC 7.6 10^3/uL (5.0-10.0)
[2023-12-11 06:57] LABS: ALBUMIN 2.2 g/dL (3.4-5.0); ANION GAP 16.2 mEq/L (7-13); BILIRUBIN TOTAL 0.4 mg/dL (0.2-1.0); BUN/CREATININE RATIO 11.5 (No establ ref range); C-REACTIVE PROTEIN 1.36 ng/dL (<=0.50); CALCIUM 8.1 mg/dL (8.5-10.1); CREATININE 1.04 mg/dL (0.70-1.30); EST CRCL DRUG DOSING (CG) 67.98 mL/min; POTASSIUM,K 4.2 mmol/L (3.5-5.1); PROTEIN TOTAL,TP 5.2 g/dL (6.4-8.2)
[2023-12-11 07:00] LABS: A/G RATIO 0.73
[2023-12-11] MEDS: Atenolol 50 MG Tab PO SCH (08:03)
[2023-12-11] MEDS: Saccharomyces Boulardii (Probiotic) 250 MG Cap PO SCH ×2 (08:03→20:41)
[2023-12-11] MEDS: Aspirin 81 MG Tab.EC PO SCH (08:04)
[2023-12-11] MEDS: Pantoprazole 40 MG Tab.CR PO SCH (08:04)
[2023-12-11] MEDS: Ferrous Sulfate 325 MG Tab PO SCH ×2 (08:04→17:19)
[2023-12-11] MEDS: Isosorbide Mononitrate 60 MG Tab.ER PO SCH (08:04)
[2023-12-11] MEDS: Insulin Glarg,Human.Rec.Analog 100 Unit/ML 10 ML Vial SUBCUT SCH ×2 (08:04→20:44)
[2023-12-11] MEDS: Clopidogrel 75 MG Tab PO SCH (08:04)
[2023-12-11] MEDS: Insulin Lispro 100 Units/ML 3 ML Vial SUBCUT SCH ×3 (08:05→17:20)
[2023-12-11] MEDS: Sodium Chloride 0.9% 10 ML Syringe FLUSH SCH ×2 (08:07→20:45)
[2023-12-11] MEDS: Bacitracin/Neomycin/Polymyxin B Oint 28.4 GM Tube TOP SCH ×2 (08:07→20:43)
[2023-12-11] MEDS: Niacin 500 MG Tab.ER PO SCH (20:41)
[2023-12-11] MEDS: Montelukast 10 MG Tab PO SCH (20:42)
[2023-12-11] MEDS: Simvastatin 10 MG Tab PO SCH (20:46)
[2023-12-11] MEDS: Zolpidem 5 MG Tab PO PRN (22:31)
[2023-12-12] MEDS: Piperacillin/Tazobactam 4.5 GM in Sodium Chloride 0.9% 100 ML IV SCH ×3 (02:02→17:00)
[2023-12-12] MEDS: SOD CHLOR 0.9% IV SCH ×3 (05:59→21:59)
[2023-12-12] MEDS: CLINDAMYCIN IV SCH ×3 (05:59→21:59)
[2023-12-12] MEDS: Insulin Lispro 100 Units/ML 3 ML Vial SUBCUT SCH ×3 (09:02→16:59)
[2023-12-12] MEDS: Insulin Glarg,Human.Rec.Analog 100 Unit/ML 10 ML Vial SUBCUT SCH ×2 (09:04→21:58)
[2023-12-12] MEDS: Atenolol 50 MG Tab PO SCH (09:08)
[2023-12-12] MEDS: Aspirin 81 MG Tab.EC PO SCH (09:08)
[2023-12-12] MEDS: Ferrous Sulfate 325 MG Tab PO SCH ×2 (09:08→17:00)
[2023-12-12] MEDS: Bacitracin/Neomycin/Polymyxin B Oint 28.4 GM Tube TOP SCH ×2 (09:08→21:59)
[2023-12-12] MEDS: Isosorbide Mononitrate 60 MG Tab.ER PO SCH (09:08)
[2023-12-12] MEDS: Saccharomyces Boulardii (Probiotic) 250 MG Cap PO SCH ×2 (09:08→21:58)
[2023-12-12] MEDS: Pantoprazole 40 MG Tab.CR PO SCH (09:08)
[2023-12-12] MEDS: Clopidogrel 75 MG Tab PO SCH (09:09)
[2023-12-12] MEDS: Sodium Chloride 0.9% 10 ML Syringe FLUSH SCH ×2 (09:11→21:59)
[2023-12-12] MEDS ORDERED: Hydrochlorothiazide/Triamterene 25-37.5 Tab PO ONE (11:13)
[2023-12-12] MEDS: Niacin 500 MG Tab.ER PO SCH (21:58)
[2023-12-12] MEDS: Montelukast 10 MG Tab PO SCH (21:58)
[2023-12-12] MEDS: Simvastatin 10 MG Tab PO SCH (21:58)
[2023-12-12] MEDS: Zolpidem 5 MG Tab PO PRN (22:04)
[2023-12-13] MEDS: Piperacillin/Tazobactam 4.5 GM in Sodium Chloride 0.9% 100 ML IV SCH ×2 (02:20→09:40)
[2023-12-13] MEDS: SOD CHLOR 0.9% IV SCH (05:22)
[2023-12-13] MEDS: CLINDAMYCIN IV SCH (05:22)
[2023-12-13 06:38] LABS: BASOPHILS PERCENT AUTO 0.4 % (0.0-1.0); EOSINOPHILS PERCENT AUTO 2.5 % (1.0-3.0); HEMATOCRIT 32.6 % (40.0-54.0); HEMOGLOBIN 10.9 g/dL (14.0-18.0); LYMPHOCYTES PERCENT AUTO 20.5 % (20.5-50.1); MEAN CORPUSCULAR HEMOGLOBIN 31.7 pg (27.0-34.0); MEAN CORPUSCULAR HGB CONC 33.4 g/dL (33.0-35.0); MEAN CORPUSCULAR VOLUME 94.8 fL (80-100); MONOCYTES PERCENT AUTO 7.9 % (2-8); NEUTROPHILS PERCENT AUTO 68.7 % (42.2-75.2); PLATELET COUNT,PLT 216 10^3/uL (150-450); RED BLOOD CELL COUNT 3.44 10^6/uL (4.6-6.2); WHITE BLOOD CELL COUNT,WBC 5.7 10^3/uL (5.0-10.0)
[2023-12-13 07:03] LABS: ALBUMIN 2.4 g/dL (3.4-5.0); ANION GAP 12.7 mEq/L (7-13); BILIRUBIN TOTAL 0.3 mg/dL (0.2-1.0); BUN/CREATININE RATIO 11.7 (No establ ref range); C-REACTIVE PROTEIN 0.65 ng/dL (<=0.50); CREATININE 1.03 mg/dL (0.70-1.30); EST CRCL DRUG DOSING (CG) 68.64 mL/min; POTASSIUM,K 4.7 mmol/L (3.5-5.1); PROTEIN TOTAL,TP 5.6 g/dL (6.4-8.2)
[2023-12-13 07:10] LABS: A/G RATIO 0.75
[2023-12-13] MEDS: Insulin Glarg,Human.Rec.Analog 100 Unit/ML 10 ML Vial SUBCUT SCH (08:15)
[2023-12-13] MEDS: Atenolol 50 MG Tab PO SCH (08:16)
[2023-12-13] MEDS: Pantoprazole 40 MG Tab.CR PO SCH (08:16)
[2023-12-13] MEDS: Clopidogrel 75 MG Tab PO SCH (08:16)
[2023-12-13] MEDS: Aspirin 81 MG Tab.EC PO SCH (08:16)
[2023-12-13] MEDS: Ferrous Sulfate 325 MG Tab PO SCH (08:17)
[2023-12-13] MEDS: Saccharomyces Boulardii (Probiotic) 250 MG Cap PO SCH (08:17)
[2023-12-13] MEDS: Insulin Lispro 100 Units/ML 3 ML Vial SUBCUT SCH ×2 (08:17→12:21)
[2023-12-13] MEDS: Isosorbide Mononitrate 60 MG Tab.ER PO SCH (08:17)
[2023-12-13] MEDS: Sodium Chloride 0.9% 10 ML Syringe FLUSH SCH (08:18)
[2023-12-13] MEDS: Bacitracin/Neomycin/Polymyxin B Oint 28.4 GM Tube TOP SCH (08:18)
[2023-12-13] MEDS ORDERED: Hydrochlorothiazide/Triamterene 25-37.5 Tab PO SCH (09:00)
== END 2023-12-13 14:30 | disposition home or self-care (01) | DRG 638 ==
LOC: DL.MS 11:43 → OBSVTOIN 12-08 15:22
PROVIDERS: ADMIT Internal Medicine; ATTEND Internal Medicine
DX: E11.622 Type 2 diabetes mellitus with other skin ulcer (principal); E87.1 Hypo-osmolality and hyponatremia; L03.116 Cellulitis of left lower limb; L97.129 Non-pressure chronic ulcer of left thigh with unspecified severity; N17.9 Acute kidney failure, unspecified; I10 Essential (primary) hypertension; I25.10 Atherosclerotic heart disease of native coronary artery without angina pectoris; J44.9 Chronic obstructive pulmonary disease, unspecified; E88.09 Other disorders of plasma-protein metabolism, not elsewhere classified; E66.9 Obesity, unspecified; E87.5 Hyperkalemia; R79.82 Elevated C-reactive protein (CRP); K21.9 Gastro-esophageal reflux disease without esophagitis; M54.9 Dorsalgia, unspecified; E78.00 Pure hypercholesterolemia, unspecified; G89.29 Other chronic pain; E11.65 Type 2 diabetes mellitus with hyperglycemia; D69.6 Thrombocytopenia, unspecified; E11.42 Type 2 diabetes mellitus with diabetic polyneuropathy; Z95.5 Presence of coronary angioplasty implant and graft; Z68.34 Body mass index [BMI] 34.0-34.9, adult; Z88.8 Allergy status to other drugs, medicaments and biological substances; Z79.02 Long term (current) use of antithrombotics/antiplatelets; Z79.82 Long term (current) use of aspirin; Z79.4 Long term (current) use of insulin; Z79.899 Other long term (current) drug therapy; Z79.2 Long term (current) use of antibiotics; Z79.51 Long term (current) use of inhaled steroids; Z86.16 Personal history of COVID-19; Z90.89 Acquired absence of other organs; Z98.49 Cataract extraction status, unspecified eye; Z98.890 Other specified postprocedural states
CPT/HCPCS: 36415; 73701; 80053; 82947; 83735; 85025; 86140; 87040; 87070; 87077; 87186; 96365; 96366; 96368; 96375; 96376; A9270-GY; G0378; J1815-GY; J1940; J2405; J2543; J2765; J3490; J7030; Q9967

== ENCOUNTER 2024-04-20 17:34 | Emergency (ER) | payer MEDICARE, BC ==
[2024-04-20] MEDS: 50% Dextrose in Water 50 ML Syringe ONE (17:11)
[2024-04-20] MEDS: Sodium Chloride 0.9% 10 ML Syringe FLUSH PRN (17:31)
[2024-04-20 17:39] LABS: BASOPHILS PERCENT AUTO 0.1 % (0.0-1.0); EOSINOPHILS PERCENT AUTO 1.8 % (1.0-3.0); HEMATOCRIT 35.5 % (40.0-54.0); HEMOGLOBIN 11.9 g/dL (14.0-18.0); LYMPHOCYTES PERCENT AUTO 15.1 % (20.5-50.1); MEAN CORPUSCULAR HEMOGLOBIN 30.5 pg (27.0-34.0); MEAN CORPUSCULAR HGB CONC 33.5 g/dL (33.0-35.0); MONOCYTES PERCENT AUTO 7.9 % (2-8); NEUTROPHILS PERCENT AUTO 75.1 % (42.2-75.2); PLATELET COUNT,PLT 136 10^3/uL (150-450); WHITE BLOOD CELL COUNT,WBC 6.7 10^3/uL (5.0-10.0)
[2024-04-20 18:00] LABS: A/G RATIO 1.1; ALANINE AMINOTRANSFERASE,ALT 39 U/L (16-63); ALBUMIN 3.5 g/dL (3.4-5.0); ALKALINE PHOSPHATASE 136 U/L (46-116); ANION GAP 10.1 mEq/L (7-13); ASPARTATE AMNIOTRANSFERASE,AST 47 U/L (15-37); BILIRUBIN TOTAL 0.4 mg/dL (0.2-1.0); BLOOD UREA NITROGEN,BUN 12 mg/dL (7-18); CALCIUM 8.6 mg/dL (8.5-10.1); CARBON DIOXIDE,CO2 32 mmol/L (21-32); CHLORIDE,CL 102 mmol/L (98-107); GLUCOSE RANDOM 120 mg/dL (70-99); MAGNESIUM 2.4 mg/dL (1.8-2.4); POTASSIUM,K 5.1 mmol/L (3.5-5.1); PROTEIN TOTAL,TP 6.6 g/dL (6.4-8.2); SODIUM,NA 139 mmol/L (136-145)
[2024-04-20 18:01] LABS: C-REACTIVE PROTEIN < 0.50 ng/dL (<=0.50); ESTIMATED GFR 82 mL/min (>=60)
[2024-04-20] MEDS ORDERED: 50% Dextrose in Water 50 ML Syringe IVPUSH ONE (18:39)
== END 2024-04-20 18:30 | disposition home or self-care (01) ==
LOC: DL.ED 17:34
DX: S01.01XA Laceration without foreign body of scalp, initial encounter (principal); E11.649 Type 2 diabetes mellitus with hypoglycemia without coma; I10 Essential (primary) hypertension; K21.9 Gastro-esophageal reflux disease without esophagitis; E78.00 Pure hypercholesterolemia, unspecified; J44.9 Chronic obstructive pulmonary disease, unspecified; Z86.16 Personal history of COVID-19; Z79.899 Other long term (current) drug therapy; Z79.82 Long term (current) use of aspirin; Z88.8 Allergy status to other drugs, medicaments and biological substances; Z79.4 Long term (current) use of insulin; W22.8XXA Striking against or struck by other objects, initial encounter
CPT/HCPCS: 12002; 36415; 70450; 80053; 82947; 83735; 85025; 86140; 99284; 99285; J3490

== ENCOUNTER 2024-08-25 14:02 | Emergency (ER) | payer MEDICARE, BC ==
[2024-08-25] MEDS ORDERED: Sodium Chloride 0.9% 10 ML Syringe FLUSH PRN (14:22)
[2024-08-25 14:35] LABS: BASOPHILS PERCENT AUTO 0.1 % (0.0-1.0); EOSINOPHILS PERCENT AUTO 0.7 % (1.0-3.0); HEMATOCRIT 29.3 % (40.0-54.0); HEMOGLOBIN 10.1 g/dL (14.0-18.0); LYMPHOCYTES PERCENT AUTO 10.5 % (20.5-50.1); MEAN CORPUSCULAR HEMOGLOBIN 30.9 pg (27.0-34.0); MEAN CORPUSCULAR HGB CONC 34.5 g/dL (33.0-35.0); MEAN CORPUSCULAR VOLUME 89.6 fL (80-100); MONOCYTES PERCENT AUTO 8.1 % (2-8); NEUTROPHILS PERCENT AUTO 80.6 % (42.2-75.2); PLATELET COUNT,PLT 139 10^3/uL (150-450); RED BLOOD CELL COUNT 3.27 10^6/uL (4.6-6.2); WHITE BLOOD CELL COUNT,WBC 8.1 10^3/uL (5.0-10.0)
[2024-08-25 14:47] LABS: HEMOGLOBIN A1C 7.8 % (<5.7)
[2024-08-25 14:52] LABS: ANION GAP 9.2 mEq/L (7-13); BILIRUBIN TOTAL 0.5 mg/dL (0.2-1.0); BUN/CREATININE RATIO 15.8 (No establ ref range); C-REACTIVE PROTEIN 5.66 ng/dL (<=0.50); CALCIUM 8.2 mg/dL (8.5-10.1); CREATININE 1.14 mg/dL (0.70-1.30); EST CRCL DRUG DOSING (CG) 61.16 mL/min; POTASSIUM,K 4.2 mmol/L (3.5-5.1); PROTEIN TOTAL,TP 6.1 g/dL (6.4-8.2); URIC ACID 3.5 mg/dL (3.5-7.2)
[2024-08-25 14:53] LABS: A/G RATIO 0.97
[2024-08-25] MEDS: Sulfamethoxazole/Trimethoprim 800-160 MG Tab PO ONE (16:14)
== END 2024-08-25 16:38 | disposition home or self-care (01) ==
LOC: DL.ED 14:02
DX: M86.9 Osteomyelitis, unspecified (principal); L03.115 Cellulitis of right lower limb; E78.00 Pure hypercholesterolemia, unspecified; I10 Essential (primary) hypertension; Z95.5 Presence of coronary angioplasty implant and graft; J44.9 Chronic obstructive pulmonary disease, unspecified; K21.9 Gastro-esophageal reflux disease without esophagitis; E11.40 Type 2 diabetes mellitus with diabetic neuropathy, unspecified; Z86.16 Personal history of COVID-19; Z79.82 Long term (current) use of aspirin; Z79.4 Long term (current) use of insulin; Z79.899 Other long term (current) drug therapy; Z88.5 Allergy status to narcotic agent
CPT/HCPCS: 36415; 73630; 73700; 80053; 83036; 83880; 84550; 85025; 86140; 87040; 87070; 87077; 87186; 99284; A9270

== ENCOUNTER 2025-01-09 16:53 | Emergency (ER) | payer MEDICARE, BC ==
[2025-01-09 17:34] LABS: BASOPHILS PERCENT AUTO 0.3 % (0.0-1.0); HEMATOCRIT 30.2 % (40.0-54.0); HEMOGLOBIN 10.1 g/dL (14.0-18.0); LYMPHOCYTES PERCENT AUTO 15.2 % (20.5-50.1); MEAN CORPUSCULAR HEMOGLOBIN 30.9 pg (27.0-34.0); MEAN CORPUSCULAR HGB CONC 33.4 g/dL (33.0-35.0); MEAN CORPUSCULAR VOLUME 92.4 fL (80-100); MONOCYTES PERCENT AUTO 9.6 % (2-8); NEUTROPHILS PERCENT AUTO 72.9 % (42.2-75.2); PLATELET COUNT,PLT 115 10^3/uL (150-450); RED BLOOD CELL COUNT 3.27 10^6/uL (4.6-6.2); WHITE BLOOD CELL COUNT,WBC 6.7 10^3/uL (5.0-10.0)
[2025-01-09] MEDS: Albuterol/Ipratropium 3.0-0.5 MG/3 ML Neb Soln NEB ONE (17:45)
[2025-01-09 17:51] LABS: B-TYPE NATRIURETIC PEPTIDE,BNP 254 pg/ml (0-100); INR 0.9 (0.9-1.2); PROTHROMBIN TIME 9.9 SEC (9.0-12.0)
[2025-01-09 17:58] LABS: A/G RATIO 1.07; ALANINE AMINOTRANSFERASE,ALT 28 U/L (16-63); ALKALINE PHOSPHATASE 127 U/L (46-116); ANION GAP 6.7 mEq/L (7-13); ASPARTATE AMNIOTRANSFERASE,AST 25 U/L (15-37); BILIRUBIN TOTAL 0.4 mg/dL (0.2-1.0); BLOOD UREA NITROGEN,BUN 13 mg/dL (7-18); BUN/CREATININE RATIO 14.6 (No establ ref range); CALCIUM 8.2 mg/dL (8.5-10.1); CARBON DIOXIDE,CO2 33 mmol/L (21-32); CHLORIDE,CL 104 mmol/L (98-107); CREATININE 0.89 mg/dL (0.70-1.30); ESTIMATED GFR 93 mL/min (>=60); GLUCOSE RANDOM 105 mg/dL (70-99); MAGNESIUM 1.9 mg/dL (1.8-2.4); POTASSIUM,K 3.7 mmol/L (3.5-5.1); PROTEIN TOTAL,TP 5.8 g/dL (6.4-8.2); SODIUM,NA 140 mmol/L (136-145)
[2025-01-09] MEDS: Amoxicillin/Clavulanate K 875-125 MG Tab PO ONE (18:38)
[2025-01-09] MEDS: cloNIDine 0.1 MG Tab PO ONE (18:38)
[2025-01-09] MEDS: Azithromycin 250 MG Tab PO ONE (18:39)
== END 2025-01-09 19:36 | disposition home or self-care (01) ==
LOC: DL.ED 16:53
DX: J18.9 Pneumonia, unspecified organism (principal); I10 Essential (primary) hypertension; E78.00 Pure hypercholesterolemia, unspecified; I25.10 Atherosclerotic heart disease of native coronary artery without angina pectoris; E11.9 Type 2 diabetes mellitus without complications; J44.9 Chronic obstructive pulmonary disease, unspecified; Z88.5 Allergy status to narcotic agent; Z79.82 Long term (current) use of aspirin; Z79.899 Other long term (current) drug therapy; Z79.4 Long term (current) use of insulin; Z95.5 Presence of coronary angioplasty implant and graft; Z86.16 Personal history of COVID-19; R06.02 Shortness of breath
CPT/HCPCS: 36415; 71046; 80053; 83735; 83880; 84484; 85025; 85379; 85610; 87428; 93005; 93010; 99284; 99285; A9270; J7620-GY

== ENCOUNTER 2025-05-22 17:21 | Inpatient (IN) | payer MEDICARE, BC ==
[2025-05-22 19:27] LABS: PLATELET COUNT,PLT 290 10^3/uL (150-450); RED BLOOD CELL COUNT 2.50 10^6/uL (4.6-6.2); WHITE BLOOD CELL COUNT,WBC 7.3 10^3/uL (5.0-10.0)
[2025-05-22 19:30] LABS: BASOPHILS PERCENT AUTO 0.1 % (0.0-1.0); EOSINOPHILS PERCENT AUTO 3.3 % (1.0-3.0); LYMPHOCYTES PERCENT AUTO 11.8 % (20.5-50.1); MONOCYTES PERCENT AUTO 8.9 % (2-8); NEUTROPHILS PERCENT AUTO 75.9 % (42.2-75.2)
[2025-05-22 19:36] LABS: BLOOD UREA NITROGEN,BUN 22 mg/dL (7-18); CARBON DIOXIDE,CO2 19 mmol/L (21-32); CHLORIDE,CL 102 mmol/L (98-107); CREATININE 1.29 mg/dL (0.70-1.30); GLUCOSE RANDOM 244 mg/dL (70-99); POTASSIUM,K 4.7 mmol/L (3.5-5.1); SODIUM,NA 137 mmol/L (136-145)
[2025-05-22 19:37] LABS: ESTIMATED GFR 60 mL/min (>=60)
[2025-05-22 19:46] LABS: BAND PERCENT MAN 1 %; LYMPHOCYTES PERCENT MAN 12 % (20-50); SEG NEUTROPHILS PERCENT MAN 80 % (42-75)
[2025-05-22 19:47] LABS: EOSINOPHILS PERCENT MAN 2 % (1-3); MONOCYTES PERCENT MAN 6 % (2-8)
[2025-05-22] MEDS ORDERED: 50% Dextrose in Water 50 ML Syringe IVPUSH PRN (19:51)
[2025-05-22 20:02] LABS: IRON,FE 31.0 ug/dL (65-175); PERCENT FE SATURATION 20.9 % (20.0-50.0)
[2025-05-22 20:29] LABS: FOLIC ACID 14.4 ng/mL (8.6-58.9); T4 FREE 1.66 ng/dL (0.76-1.46); TSH ULTRASENSITIVE 2.81 uIU/mL (0.36-3.74)
[2025-05-22 20:34] LABS: B-TYPE NATRIURETIC PEPTIDE,BNP 184.0 pg/ml (0-100)
[2025-05-22] MEDS: Insulin Glarg,Human.Rec.Analog 100 Unit/ML 10 ML Vial SUBCUT SCH (21:38)
[2025-05-22] MEDS: Nafcillin 2 GM Vial IVPUSH SCH (21:52)
[2025-05-22] MEDS: Heparin Sodium 5,000 Units/ML Vial SUBCUT SCH (21:52)
[2025-05-23 06:25] LABS: PLATELET COUNT,PLT 263.0 10^3/uL (150-450); RED BLOOD CELL COUNT 2.74 10^6/uL (4.6-6.2); WHITE BLOOD CELL COUNT,WBC 6.0 10^3/uL (5.0-10.0)
[2025-05-23 06:52] LABS: ALANINE AMINOTRANSFERASE,ALT 7.0 U/L (16-63); ASPARTATE AMNIOTRANSFERASE,AST 9.0 U/L (15-37); BILIRUBIN DIRECT 0.1 mg/dL (0.0-0.2); BILIRUBIN INDIRECT 0.3; BILIRUBIN TOTAL 0.4 mg/dL (0.2-1.0); BLOOD UREA NITROGEN,BUN 22.0 mg/dL (7-18); CARBON DIOXIDE,CO2 19.0 mmol/L (21-32); CHLORIDE,CL 103.0 mmol/L (98-107); CREATININE 1.32 mg/dL (0.70-1.30); EST CRCL DRUG DOSING (CG) 52.82 mL/min; GLUCOSE RANDOM 302.0 mg/dL (70-99); PHOSPHORUS 4.5 mg/dL (2.6-4.7); POTASSIUM,K 4.9 mmol/L (3.5-5.1); PROTEIN TOTAL,TP 6.5 g/dL (6.4-8.2); SODIUM,NA 137.0 mmol/L (136-145)
[2025-05-23 06:53] LABS: A/G RATIO 0.35; ESTIMATED GFR 58.0 mL/min (>=60)
[2025-05-23] MEDS: Nafcillin 2 GM Vial IVPUSH SCH (11:21)
[2025-05-24 06:55] LABS: BASOPHILS PERCENT AUTO 0.2 % (0.0-1.0); EOSINOPHILS PERCENT AUTO 1.3 % (1.0-3.0); LYMPHOCYTES PERCENT AUTO 13.4 % (20.5-50.1); MONOCYTES PERCENT AUTO 9.6 % (2-8); NEUTROPHILS PERCENT AUTO 75.5 % (42.2-75.2); PLATELET COUNT,PLT 284 10^3/uL (150-450); RED BLOOD CELL COUNT 2.89 10^6/uL (4.6-6.2); WHITE BLOOD CELL COUNT,WBC 6.4 10^3/uL (5.0-10.0)
[2025-05-24 07:08] LABS: BLOOD UREA NITROGEN,BUN 17.0 mg/dL (7-18); CARBON DIOXIDE,CO2 22.0 mmol/L (21-32); CHLORIDE,CL 104.0 mmol/L (98-107); CREATININE 1.11 mg/dL (0.70-1.30); EST CRCL DRUG DOSING (CG) 62.81 mL/min; GLUCOSE RANDOM 234.0 mg/dL (70-99); POTASSIUM,K 4.4 mmol/L (3.5-5.1); SODIUM,NA 138.0 mmol/L (136-145)
[2025-05-24 07:09] LABS: ESTIMATED GFR 72.0 mL/min (>=60)
[2025-05-24 07:22] LABS: B-TYPE NATRIURETIC PEPTIDE,BNP 269.0 pg/ml (0-100)
[2025-05-24] MEDS: Metoprolol Tartrate 5 MG/5 ML SDV IVPUSH SCH (09:58)
[2025-05-24] MEDS: Insulin Regular, Human 100 Units/ML 10 ML Vial IV ONE (09:59)
[2025-05-24] MEDS: Iopamidol 755 Mg/ML 100 ML Bottle IVPUSH ONE (15:43)
[2025-05-24 17:15] LABS: LACTIC ACID 1.0 mmol/L (0.4-2.0)
[2025-05-24] MEDS: Metoprolol Tartrate 5 MG/5 ML SDV IVPUSH ONE (17:20)
== END 2025-05-24 19:30 | DRG 811 ==
LOC: DL.ED 17:21 → DL.MS 18:57
PROVIDERS: ADMIT Internal Medicine; ATTEND Internal Medicine
PROC: 30233N1 Transfusion of Nonautologous Red Blood Cells into Peripheral Vein, Percutaneous Approach (ICD-10-PCS; principal; 2025-05-22)
DX: D64.9 Anemia, unspecified (principal); I10 Essential (primary) hypertension; D50.9 Iron deficiency anemia, unspecified; E43 Unspecified severe protein-calorie malnutrition; E87.1 Hypo-osmolality and hyponatremia; I50.32 Chronic diastolic (congestive) heart failure; E11.40 Type 2 diabetes mellitus with diabetic neuropathy, unspecified; I13.0 Hypertensive heart and chronic kidney disease with heart failure and stage 1 through stage 4 chronic kidney disease, or unspecified chronic kidney disease; H54.7 Unspecified visual loss; I25.10 Atherosclerotic heart disease of native coronary artery without angina pectoris; Z79.84 Long term (current) use of oral hypoglycemic drugs; Z88.5 Allergy status to narcotic agent; E78.00 Pure hypercholesterolemia, unspecified; J44.9 Chronic obstructive pulmonary disease, unspecified; K21.9 Gastro-esophageal reflux disease without esophagitis; N42.9 Disorder of prostate, unspecified; E10.22 Type 1 diabetes mellitus with diabetic chronic kidney disease; M54.9 Dorsalgia, unspecified; G89.29 Other chronic pain; N18.9 Chronic kidney disease, unspecified; R51.9 Headache, unspecified; E10.40 Type 1 diabetes mellitus with diabetic neuropathy, unspecified; N40.0 Benign prostatic hyperplasia without lower urinary tract symptoms; F41.9 Anxiety disorder, unspecified; I95.1 Orthostatic hypotension; F43.12 Post-traumatic stress disorder, chronic; Z86.16 Personal history of COVID-19; Z98.49 Cataract extraction status, unspecified eye; Z88.8 Allergy status to other drugs, medicaments and biological substances; Z90.49 Acquired absence of other specified parts of digestive tract; Z98.890 Other specified postprocedural states; Z68.29 Body mass index [BMI] 29.0-29.9, adult; Z79.82 Long term (current) use of aspirin; Z86.718 Personal history of other venous thrombosis and embolism; Z95.5 Presence of coronary angioplasty implant and graft; Z79.4 Long term (current) use of insulin; Z79.899 Other long term (current) drug therapy
CPT/HCPCS: 36415; 36430; 72133; 72194; 80048; 80076; 82272; 82607; 82746; 82947; 83540; 83550; 83605; 83735; 83880; 84100; 84145; 84439; 84443; 85025; 85027; 85651; 86140; 86850; 86900; 86901; 86920; 86922; 87040; 99223; 99233; 99239; 99284; 99285; A9270-GY; J0690; J1644; J1815-GY; J2543; J3370; J3490; J7040; P9016; Q0138; Q9967

== ENCOUNTER 2025-05-30 12:45 | Inpatient (IN) | payer MEDICARE, BC ==
[2025-05-30] MEDS: OXACILLIN SCH (15:28)
[2025-05-30] MEDS: SODIUM CHLORIDE 0.9% SCH (15:28)
[2025-05-30] MEDS: Sennosides/Docusate Sodium 50-8.6 MG Tab PO SCH (21:23)
[2025-05-30] MEDS: Insulin Glarg,Human.Rec.Analog 100 Unit/ML 10 ML Vial SUBCUT SCH (21:26)
[2025-05-30] MEDS: Heparin Sodium 5,000 Units/ML Vial SUBCUT SCH (21:28)
[2025-05-31] MEDS: Omeprazole 20 MG Cap.CR PO SCH (05:39)
[2025-05-31] MEDS: Megestrol Susp 40 MG/ML 10 ML UD Cup PO SCH (09:45)
[2025-05-31] MEDS: OXACILLIN IV SCH (15:49)
[2025-05-31] MEDS: SODIUM CHLORIDE 0.9% IV SCH (15:49)
[2025-06-01] MEDS ORDERED: 50% Dextrose in Water 50 ML Syringe IVPUSH PRN (12:38)
[2025-06-01] MEDS: OXACILLIN IV SCH (16:27)
[2025-06-01] MEDS: SODIUM CHLORIDE 0.9% IV SCH (16:27)
[2025-06-04] MEDS: Insulin Glarg,Human.Rec.Analog 100 Unit/ML 10 ML Vial SUBCUT SCH (21:24)
[2025-06-04] MEDS: Sodium Chloride 0.9% 10 ML Syringe FLUSH PRN (21:42)
[2025-06-05 06:17] LABS: BASOPHILS PERCENT AUTO 0.2 % (0.0-1.0); EOSINOPHILS PERCENT AUTO 1.8 % (1.0-3.0); LYMPHOCYTES PERCENT AUTO 21.8 % (20.5-50.1); MONOCYTES PERCENT AUTO 9.9 % (2-8); NEUTROPHILS PERCENT AUTO 66.3 % (42.2-75.2); PLATELET COUNT,PLT 195 10^3/uL (150-450); RED BLOOD CELL COUNT 2.99 10^6/uL (4.6-6.2); WHITE BLOOD CELL COUNT,WBC 4.9 10^3/uL (5.0-10.0)
[2025-06-05 06:28] LABS: BLOOD UREA NITROGEN,BUN 15.0 mg/dL (7-18); CARBON DIOXIDE,CO2 25.0 mmol/L (21-32); CHLORIDE,CL 104.0 mmol/L (98-107); CREATININE 0.98 mg/dL (0.70-1.30); EST CRCL DRUG DOSING (CG) 71.14 mL/min; GLUCOSE RANDOM 193.0 mg/dL (70-99); POTASSIUM,K 4.8 mmol/L (3.5-5.1); SODIUM,NA 135.0 mmol/L (136-145)
[2025-06-05 06:29] LABS: ESTIMATED GFR 83.0 mL/min (>=60)
[2025-06-09] MEDS: Acetaminophen/oxyCODONE 325-5 MG Tab PO PRN (14:32)
[2025-06-11 05:47] LABS: BASOPHILS PERCENT AUTO 0.0 % (0.0-1.0); EOSINOPHILS PERCENT AUTO 0.7 % (1.0-3.0); LYMPHOCYTES PERCENT AUTO 23.4 % (20.5-50.1); MONOCYTES PERCENT AUTO 10.4 % (2-8); NEUTROPHILS PERCENT AUTO 65.5 % (42.2-75.2); PLATELET COUNT,PLT 214 10^3/uL (150-450); RED BLOOD CELL COUNT 3.01 10^6/uL (4.6-6.2); WHITE BLOOD CELL COUNT,WBC 5.5 10^3/uL (5.0-10.0)
[2025-06-11 06:16] LABS: ALANINE AMINOTRANSFERASE,ALT 10.0 U/L (16-63); ASPARTATE AMNIOTRANSFERASE,AST 13.0 U/L (15-37); BILIRUBIN TOTAL 0.2 mg/dL (0.2-1.0); BLOOD UREA NITROGEN,BUN 18.0 mg/dL (7-18); CARBON DIOXIDE,CO2 26.0 mmol/L (21-32); CHLORIDE,CL 102.0 mmol/L (98-107); CREATININE 0.79 mg/dL (0.70-1.30); EST CRCL DRUG DOSING (CG) 88.25 mL/min; GLUCOSE RANDOM 224.0 mg/dL (70-99); POTASSIUM,K 4.8 mmol/L (3.5-5.1); PROTEIN TOTAL,TP 6.4 g/dL (6.4-8.2); SODIUM,NA 133.0 mmol/L (136-145)
[2025-06-11 06:17] LABS: A/G RATIO 0.42; ESTIMATED GFR 96.0 mL/min (>=60)
[2025-06-11] MEDS: Insulin Glarg,Human.Rec.Analog 100 Unit/ML 10 ML Vial SUBCUT SCH (08:53)
[2025-06-12] MEDS: Insulin Glarg,Human.Rec.Analog 100 Unit/ML 10 ML Vial SUBCUT SCH (21:45)
[2025-06-20] MEDS ORDERED: 50% Dextrose in Water 50 ML Syringe IVPUSH PRN (08:24)
[2025-06-20] MEDS: Insulin Glarg,Human.Rec.Analog 100 Unit/ML 10 ML Vial SUBCUT SCH ×2 (08:46→21:22)
[2025-07-04 14:34] LABS: WHITE BLOOD CELL COUNT,WBC 6.2 10^3/uL (5.0-10.0)
[2025-07-04 14:35] LABS: BASOPHILS PERCENT AUTO 0.2 % (0.0-1.0); EOSINOPHILS PERCENT AUTO 0.5 % (1.0-3.0); LYMPHOCYTES PERCENT AUTO 23.5 % (20.5-50.1); MONOCYTES PERCENT AUTO 8.7 % (2-8); NEUTROPHILS PERCENT AUTO 67.1 % (42.2-75.2); PLATELET COUNT,PLT 181 10^3/uL (150-450); RED BLOOD CELL COUNT 2.72 10^6/uL (4.6-6.2)
[2025-07-04 14:52] LABS: BLOOD UREA NITROGEN,BUN 27.0 mg/dL (7-18); CARBON DIOXIDE,CO2 25.0 mmol/L (21-32); CHLORIDE,CL 104.0 mmol/L (98-107); CREATININE 0.83 mg/dL (0.70-1.30); EST CRCL DRUG DOSING (CG) 84.0 mL/min; ESTIMATED GFR 95.0 mL/min (>=60); GLUCOSE RANDOM 193.0 mg/dL (70-99); POTASSIUM,K 5.9 mmol/L (3.5-5.1); SODIUM,NA 132.0 mmol/L (136-145)
[2025-07-04 14:53] LABS: B-TYPE NATRIURETIC PEPTIDE,BNP 351.0 pg/ml (0-100)
[2025-07-04] MEDS: Furosemide 100 MG/10 ML SDV IVPUSH ONE (15:22)
[2025-07-05 06:26] LABS: BASOPHILS PERCENT AUTO 0.2 % (0.0-1.0); EOSINOPHILS PERCENT AUTO 0.8 % (1.0-3.0); LYMPHOCYTES PERCENT AUTO 28.9 % (20.5-50.1); MONOCYTES PERCENT AUTO 9.6 % (2-8); NEUTROPHILS PERCENT AUTO 60.5 % (42.2-75.2); PLATELET COUNT,PLT 173 10^3/uL (150-450); RED BLOOD CELL COUNT 2.64 10^6/uL (4.6-6.2); WHITE BLOOD CELL COUNT,WBC 5.2 10^3/uL (5.0-10.0)
[2025-07-05 06:41] LABS: BLOOD UREA NITROGEN,BUN 30.0 mg/dL (7-18); CARBON DIOXIDE,CO2 25.0 mmol/L (21-32); CHLORIDE,CL 103.0 mmol/L (98-107); CREATININE 0.8 mg/dL (0.70-1.30); EST CRCL DRUG DOSING (CG) 87.15 mL/min; GLUCOSE RANDOM 143.0 mg/dL (70-99); POTASSIUM,K 4.6 mmol/L (3.5-5.1); SODIUM,NA 133.0 mmol/L (136-145)
[2025-07-05 06:45] LABS: ESTIMATED GFR 96.0 mL/min (>=60)
== END 2025-07-06 14:06 | disposition home or self-care (01) | DRG 948 ==
LOC: DL.MS 12:45
PROVIDERS: ADMIT Internal Medicine; ATTEND Internal Medicine
DX: R53.81 Other malaise (principal); E44.0 Moderate protein-calorie malnutrition; I13.0 Hypertensive heart and chronic kidney disease with heart failure and stage 1 through stage 4 chronic kidney disease, or unspecified chronic kidney disease; E87.1 Hypo-osmolality and hyponatremia; I50.32 Chronic diastolic (congestive) heart failure; R78.81 Bacteremia; N18.31 Chronic kidney disease, stage 3a; G89.4 Chronic pain syndrome; M54.41 Lumbago with sciatica, right side; E10.319 Type 1 diabetes mellitus with unspecified diabetic retinopathy without macular edema; M48.061 Spinal stenosis, lumbar region without neurogenic claudication; E88.09 Other disorders of plasma-protein metabolism, not elsewhere classified; R26.81 Unsteadiness on feet; H54.7 Unspecified visual loss; I25.10 Atherosclerotic heart disease of native coronary artery without angina pectoris; E78.00 Pure hypercholesterolemia, unspecified; J44.9 Chronic obstructive pulmonary disease, unspecified; K21.9 Gastro-esophageal reflux disease without esophagitis; R51.9 Headache, unspecified; F41.9 Anxiety disorder, unspecified; F43.10 Post-traumatic stress disorder, unspecified; D50.9 Iron deficiency anemia, unspecified; E10.22 Type 1 diabetes mellitus with diabetic chronic kidney disease; E10.610 Type 1 diabetes mellitus with diabetic neuropathic arthropathy; E10.43 Type 1 diabetes mellitus with diabetic autonomic (poly)neuropathy; R15.9 Full incontinence of feces; I95.1 Orthostatic hypotension; I48.0 Paroxysmal atrial fibrillation; D63.8 Anemia in other chronic diseases classified elsewhere; N40.1 Benign prostatic hyperplasia with lower urinary tract symptoms; R33.8 Other retention of urine; B96.89 Other specified bacterial agents as the cause of diseases classified elsewhere; G47.00 Insomnia, unspecified; Z79.82 Long term (current) use of aspirin; Z79.4 Long term (current) use of insulin; Z90.89 Acquired absence of other organs; Z88.6 Allergy status to analgesic agent; Z86.718 Personal history of other venous thrombosis and embolism; Z95.5 Presence of coronary angioplasty implant and graft; Z86.16 Personal history of COVID-19; Z98.49 Cataract extraction status, unspecified eye; Z79.899 Other long term (current) drug therapy; Z79.891 Long term (current) use of opiate analgesic; Z68.29 Body mass index [BMI] 29.0-29.9, adult
CPT/HCPCS: 36415; 80048; 80053; 82947; 83735; 83880; 85025; 97110-GO; 97110-GP; 97116-GP; 97140-GP; 97161-GP; 97165-GO; 97168-GO; 97530-GO; 97530-GP; 97535-GO; 99306; 99309; 99310; 99316; A9270-GY; J1644; J1815-GY; J1938; J2700; J7040

== ENCOUNTER 2025-08-20 15:50 | Emergency (ER) | payer MEDICARE, BC ==
[2025-08-20] MEDS: Silver Sulfadiazine 1% Crm 50 GM Tube TOP ONE (18:35)
== END 2025-08-20 18:57 | disposition home or self-care (01) ==
LOC: DL.ED 15:50
DX: E11.610 Type 2 diabetes mellitus with diabetic neuropathic arthropathy (principal); L03.116 Cellulitis of left lower limb; L24.4 Irritant contact dermatitis due to drugs in contact with skin; I10 Essential (primary) hypertension; K21.9 Gastro-esophageal reflux disease without esophagitis; E78.00 Pure hypercholesterolemia, unspecified; Z88.5 Allergy status to narcotic agent; Z79.82 Long term (current) use of aspirin; Z79.4 Long term (current) use of insulin; Z79.899 Other long term (current) drug therapy; Z86.16 Personal history of COVID-19
CPT/HCPCS: 99283; 99284; A9270